=== PATIENT | male | born 2000 | race Caucasian/White ===

== ENCOUNTER 2024-10-18 00:37 | Emergency (ER) | payer SELFPAY ==
[2024-10-18 00:42] VITALS: BP 145/90; PULSE 88; TEMP 37.4; O2SAT 97; BMI 21.0
--- NOTE | 2024-10-18 00:50 | PC.NURSE ---
Patient reports having constipation, last BM 4 days ago. Reports is passing gas but unable to have BM.
--- NOTE | 2024-10-18 00:52 | ED_ITS ---
HPI - Abdominal Pain General Chief Complaint: Abdominal Pain Stated Complaint: ABD PAIN Time Seen by Provider: 10/18/24 00:49 Source: patient Mode of arrival: walk-in History of Present Illness HPI narrative: states he has not had a BM. states he vomited once. Tried miralax but states it did not work. States last BM 4-5 days ago. Will experience occasional sharp pain. No fever or urinary symptoms Related Data Home Medications ?Medication ?Instructions ?Recorded ?Confirmed No Known Home Medications 10/18/2409/04 Allergies Allergy/AdvReac Type Severity Reaction Status Date / Time No Known Drug Allergies Allergy Verified 10/18/24 00:45 Review of Systems ROS Status of ROS 10 or more systems reviewed and unremark able except as noted in history and below PFSH PFSH Social History Little interest or pleasure in doing things: not at all Feeling down, depressed, or hopeless: not at all Exam Constitutional Vital Signs, click to edit/add: Last Vital Signs Temp 99.4 F 10/18/24 00:42 Pulse 88 10/18/24 00:42 Resp 20 10/18/24 00:42 BP 145/90 H 10/18/24 00:42 Pulse Ox 97 10/18/24 00:42 Common normals: no apparent distress, average body habitus, oriented x3, no limitations, healthy appearing, alert and well nourished [facility] Common normals: normocephalic and head/scalp atraumatic Eye Common normals: EOMs intact bilaterally and conjunctivae normal Respiratory Common normals: normal respiratory effort, no retractions, no use of accessory muscles and clear to auscultation bilaterally Cardio Common normals: regular rate, regular rhythm, S1 normal heart sound and S2 normal heart sound GI Common normals: Normal to inspection, nondistended, normoactive bowel sounds present, soft to palpation and non-tender Extremity Common normals: normal to inspection and full ROM Neuro Common normals: oriented x3, CN's II-XII intact bilaterally, moves all extremities and no focal motor deficits Psych Appearance: grossly normal Course Vital Signs Vital signs: Vital Signs Temperature 99.4 F 10/18/24 00:42 Pulse Rate 88 10/18/24 00:42 Respiratory Rate 20 10/18/24 00:42 Blood Pressure 145/90 H 10/18/24 00:42 Pulse Oximetry 97 10/18/24 00:42 Temperature 99.4 F 10/18/24 00:42 Pulse Rate 88 10/18/24 00:42 Respiratory Rate 20 10/18/24 00:42 Blood Pressure 145/90 H 10/18/24 00:42 Pulse Oximetry 97 10/18/24 00:42 MDM - Abdominal Pain MDM Narrative Medical decision making narrative: patient presents complaining of no BM in past 4-5 days. Occ sharp abdominal pain and one episode of emesis. abdominal exam unremarkable. CT with findings of constipation and ? enteritis. Labs normal WBC, BMP and LFTs. Patient asymptomatic in the department. Given dose of citrate of magnesium and discharged home Lab Data Labs: Lab Results 10/18/24 Range/Units 01:35 WBC 5.9 (4.0-11.0) 10^3/uL RBC 4.98 (4.70-6.10) 10^6/uL Hgb 14.8 (14.0-18.0) g/dL Hct 40.5 L (42.0-54.0) % MCV 81.3 (80.0-94.0) fL MCH 29.7 (25.9-34.0) pg MCHC 36.5 H (29.9-35.2) g/dL RDW 12.2 (11.0-15.0) % Plt Count 186 (150-450) 10^3/uL MPV 10.3 (9.5-13.5) fL Neut % (Auto) 71.9 (43.0-75.0) % Lymph % (Auto) 12.5 L (20.5-60.0) % [place] % (Auto) 14.4 H (1.7-12.0) % Eos % (Auto) 0.3 L (0.9-7.0) % Baso % (Auto) 0.7 (0.2-2.0) % Neut # (Auto) 4.2 (1.4-6.5) 10^3/uL Lymph # (Auto) 0.7 L (1.2-3.8) 10^3/uL [place] # (Auto) 0.9 H (0.3-0.8) 10^3/uL Eos # (Auto) 0.0 (0.0-0.7) 10^3/uL Baso # (Auto) 0.0 (0.0-0.1) 10^3/uL Abs Immat Gran (auto) 0.01 (0.00-0.03) 10^3/uL Imm/Tot Granulo (auto) 0.2 (0.0-0.5) % Sodium 135 L (136-145) mmol/L Potassium 3.7 (3.5-5.1) mmol/L Chloride 97 L (98-107) mmol/L Carbon Dioxide 33.8 H (21.0-32.0) mmol/L Anion Gap 7.9 BUN 16.0 (7.0-18.0) mg/dL Creatinine 1.08 (0.70-1.30) mg/dL Est GFR ( Amer) >60 (>=60 mL/min/1.73m^2) Est GFR (Non-Af Amer) >60 (>=60 mL/min/1.73m^2) BUN/Creatinine Ratio 14.8 Glucose 112 H (74-106) mg/dL Lactate 0.4 (0.4-2.0) mmol/L Calcium 8.7 (8.5-10.1) mg/dL Total Bilirubin 1.0 (0.2-1.0) mg/dL AST 14 L (15-37) U/L ALT 23 (16-63) U/L Alkaline Phosphatase 55 (46-116) U/L Total Protein 7.9 (6.4-8.2) g/dL Albumin 3.9 (3.4-5.0) g/dL Globulin 4.0 g/dL Albumin/Globulin Ratio 1.0 Lipase 19.0 (16.0-77.0) U/L Discharge Plan Discharge Chief Complaint: Abdominal Pain Clinical Impression: Constipation, Enteritis Patient Disposition: Home, Self-Care Prescriptions / Home Meds: No Action No Known Home Medications Print Language: Com[place]an Instructions: Constipation (DC), Enteritis (ED) Additional Instructions: follow up with your doctor next week. liquid diet for next day. Return if any worsening Referrals: Physician,Non-Staff, MD [Primary Care Provider] - 1 week Discharge Date/Time: 10/18/24 04:36
--- NOTE | 2024-10-18 00:52 | XR_ITS ---
The [address] [address] Patient Name: MONE MATHEWS MRN: [id number] date: 2000 Sex: M Assigned Patient Location: ER Current Patient Location: Accession/Order Number: [id number] Exam Date: 10/18/2024 01:19 Report Date: 10/18/2024 09:19 At the request of: KWADWO SHAH MD Procedure: XR abdomen min 2V ABDOMEN 2 VIEWS: CLINICAL INFORMATION: Constipation. COMPARISON: None FINDINGS: Multiple air-fluid levels are identified without definitive bowel dilatation. No free air. Osseous structures are grossly intact. XR/XR abdomen min 2V IMPRESSION: MULTIPLE AIR-FLUID LEVELS ARE IDENTIFIED WITHOUT DEFINITIVE BOWEL DILATATION. DEVELOPING OBSTRUCTION CANNOT BE EXCLUDED. Impression dictated by: Perico Latif Jr., D.O. 10/18/2024 9:19 AM [facility]ation [facility] Electron[facility] authenticated by: [id number] Y Date: 10/18/2024 09:19
[2024-10-18 01:47] LABS: Hematocrit 40.5 % (42.0-54.0); Hemoglobin 14.8 g/dL (14.0-18.0); Immature Granulocytes Abs Auto 0.01 10^3/uL (0.00-0.03); Immature Granulocytes Pct Auto 0.2 % (0.0-0.5); Lymphocytes Absolute Auto 0.7 10^3/uL (1.2-3.8); Mean Corpuscular HGB Conc 36.5 g/dL (29.9-35.2); Mean Corpuscular Hemoglobin 29.7 pg (25.9-34.0); Mean Corpuscular Volume 81.3 fL (80.0-94.0); Platelet Count 186 10^3/uL (150-450); Red Blood Count 4.98 10^6/uL (4.70-6.10); White Blood Count 5.9 10^3/uL (4.0-11.0)
[2024-10-18 02:01] LABS: Alanine Aminotransferase 23 U/L (16-63); Albumin Globulin Ratio 1.0; Albumin Level 3.9 g/dL (3.4-5.0); Alkaline Phosphatase 55 U/L (46-116); Anion Gap 7.9; Aspartate Amino Transferase 14 U/L (15-37); Blood Urea Nitrogen 16.0 mg/dL (7.0-18.0); Calcium 8.7 mg/dL (8.5-10.1); Carbon Dioxide 33.8 mmol/L (21.0-32.0); Chloride 97 mmol/L (98-107); Estimated GFR (African America >60 (>=60 mL/min/1.73m^2); Estimated GFR (Non-African Ame >60 (>=60 mL/min/1.73m^2); Globulin 4.0 g/dL; Glucose 112 mg/dL (74-106); Lipase 19.0 U/L (16.0-77.0); Potassium 3.7 mmol/L (3.5-5.1); Sodium 135 mmol/L (136-145); Total Protein 7.9 g/dL (6.4-8.2)
[2024-10-18 02:03] LABS: Lactate/Lactic Acid 0.4 mmol/L (0.4-2.0)
[2024-10-18] MEDS: MAGNESIUM CITRATE 296 ML SOLUTION PO (04:25)
== END 2024-10-18 04:36 | disposition home or self-care (01) ==
PROVIDERS: Emergency Provider Internal Medicine
DX: K59.00 Constipation, unspecified (principal); K52.9 Noninfective gastroenteritis and colitis, unspecified
CPT/HCPCS: 36415; 74019; 74177; 80053; 83605; 83690; 85025; 99285; Q9967

== ENCOUNTER 2024-11-16 21:13 | Emergency (ER) | payer SELFPAY ==
[2024-11-16 21:17] VITALS: BP 116/73; PULSE 70; TEMP 37.2; O2SAT 98; BMI 20.2
--- NOTE | 2024-11-16 22:06 | ED.SKABFB1 ---
HPI - Skin/Abscess/Foreign Bdy General Chief complaint: Skin/Abscess/Foreign Body Stated complaint: MIDDLE FINGER LEFT HAND SWOLLEN Time Seen by Provider: 11/16/24 21:52 Source: patient Mode of arrival: walk-in History of Present Illness HPI narrative: swelling left middle finger at the nail. Noticed the past few days. mild pain. not able to recall any injury. works on the farm. Related Data Home Medications ?Medication ?Instructions ?Recorded ?Confirmed No Known Home Medications 10/18/24 10/18/24 Allergies Allergy/AdvReac Type Severity Reaction Status Date / Time No Known Drug Allergies Allergy Verified 10/18/24 00:45 Review of Systems ROS Status of ROS 10 or more systems reviewed and unremarkable except as noted in history and below PFSH PFSH Social History Little interest or pleasure in doing things: not at all Feeling down, depressed, or hopeless: not at all Exam Constitutional Vital Signs, click to edit/add: Last Vital Signs Temp 99.0 F 11/16/24 21:17 Pulse 70 11/16/24 21:17 Resp 16 11/16/24 21:17 BP 116/73 11/16/24 21:17 Pulse Ox 98 11/16/24 21:17 O2 Del Method Room Air 11/16/24 21:17 Common normals: no apparent distress, average body habitus, oriented x3, no limitations, healthy appearing, alert and well nourished [facility] Common normals: normocephalic and head/scalp atraumatic Eye Common normals: EOMs intact bilaterally and conjunctivae normal Respiratory Common normals: normal respiratory effort, no retractions and no use of accessory muscles Extremity Other: left middle finger paronychia with mild swelling Neuro Common normals: oriented x3, CN's II-XII intact bilaterally, moves all extremities and no focal motor deficits Psych Appearance: grossly normal Course Vital Signs Vital signs: Vital Signs Temperature 99.0 F 11/16/24 21:17 Pulse Rate 70 11/16/24 21:17 Respiratory Rate 16 11/16/24 21:17 Blood Pressure 116/73 11/16/24 21:17 Pulse Oximetry 98 11/16/24 21:17 Oxygen Delivery Method Room Air 11/16/24 21:17 Temperature 99.0 F 11/16/24 21:17 Pulse Rate 70 10/06/25 21:17 Respiratory Rate 16 11/16/24 21:17 Blood Pressure 116/73 11/16/24 21:17 Pulse Oximetry 98 11/16/24 21:17 Oxygen Delivery Method Room Air 11/16/24 21:17 MDM - Skin/Abscess/Foreign Bdy MDM Narrative Medical decision making narrative: patient presents with a paronychia left middle finger. #11 blade used to make an incision and exudate expressed. Patient tolerated well. Site then cleaned. patient given dose of Augmentin and discharged home with a prescription for Augmentin Discharge Plan Discharge Chief Complaint: Skin/Abscess/Foreign Body Clinical Impression: Paronychia of finger of left hand Patient Disposition: Home, Self-Care Prescriptions / Home Meds: No Action No Known Home Medications Print Language: Hebrew Instructions: Paronychia (ED) Additional Instructions: follow up with your doctor for recheck in the next 2-3 days Referrals: Physician,Non-Staff, MD [Primary Care Provider] - 1 week
[2024-11-16] MEDS: AMOXICILLIN/POT CLAV 875-125 MG TABLET 1 TAB PO (22:11)
== END 2024-11-16 22:40 | disposition home or self-care (01) ==
PROVIDERS: Emergency Provider Internal Medicine
DX: L03.012 Cellulitis of left finger (principal)
CPT/HCPCS: 10060; 99283